=== PATIENT | female | born 1955 | race Two or more races ===

== ENCOUNTER 2024-02-25 18:10 | Emergency (ER) | payer OTHER ==
[~2024-02-25] VITALS: Ht 172.7 cm; Wt 72.6 kg
[2024-02-25] MEDS ORDERED: SYNTHROID112 MCG (18:35)
[2024-02-25] MEDS ORDERED: TOPROL XL50 M1 (18:35)
[2024-02-25] MEDS ORDERED: COZAAR50 MG (18:35)
[2024-02-25] MEDS ORDERED: KETOROLAC TROMETHAMINE 30 MG VIAL IV ONE (19:30)
[2024-02-25] MEDS ORDERED: KETOROLAC TROMETHAMINE 30 MG VIAL ONE (19:37)
[2024-02-25 20:09] LABS: HEMATOCRIT 37.4 % (36.0-45.00); HEMOGLOBIN 12.9 g/dL (12.0-15.00); MEAN CELL VOLUME 91.9 fL (80.00-100.00); MEAN CORPUSCULAR HEMOGLOBIN 31.7 pg (27.00-32.0); MEAN CORPUSCULAR HGB CONC 34.5 g/dl (32.0-36.0); PLATELET COUNT 189 K/uL (150-450); RED BLOOD COUNT 4.07 M/uL (4.00-6.00); RED CELL DISTRIBUTION WIDTH 12.2 % (11.5-14.5)
[2024-02-25 20:21] LABS: ALBUMIN 3.7 gm/dL (3.4-5.0); BILIRUBIN TOTAL 0.47 mg/dL (0.3-1.2); CALCIUM 9.9 mg/dL (8.5-10.1); CREATININE SERUM 0.72 mg/dL (0.55-1.02); GFR 80.31; GLOBULINA 3.4 G/DL (2.4-3.5); POTASSIUM 4.23 mEq/L (3.5-5.1); TOTAL PROTEIN 7.1 gm/dL (6.4-8.2)
[2024-02-25 20:55] LABS: URINE APPEARANCE Clear; URINE BILIRRUBIN Negative (NEGATIVE); URINE BLOOD Negative; URINE COLOR Yellow; URINE GLUCOSE Negative (NEGATIVE); URINE KETONE Negative (NEGATIVE); URINE LEUKOCYTE Trace; URINE NITRATE Negative; URINE PROTEIN Negative (NEGATIVE); URINE UROBILINOGEN 0.2 E.U./dl
[2024-02-25 20:59] LABS: URINE BACTERIA 52.9 uL (0.0-1933); URINE RBC 13.5 uL (0.0-20.8); URINE WBC 28.1 uL (0.0-23.2)
[2024-02-25] MEDS ORDERED: CEPHALEXIN500 M1 PO (22:35)
== END 2024-02-25 23:22 ==
LOC: ER 18:12
PROVIDERS: Nurse Practitioner Family
DX: N39.0 Urinary tract infection, site not specified (principal); R10.9 Unspecified abdominal pain; I10 Essential (primary) hypertension; E03.8 Other specified hypothyroidism; Z88.5 Allergy status to narcotic agent; Z88.6 Allergy status to analgesic agent
CPT/HCPCS: 36415; 74176; 96365; 99284; J1885